=== PATIENT | female | born 1985 | race Two or more races ===

== ENCOUNTER 2021-07-19 11:41 | Emergency (ER) | payer SELFPAY ==
[~2021-07-19] VITALS: Ht 147.3 cm; Wt 59.0 kg
== END 2021-07-19 15:23 | disposition home or self-care (01) ==
LOC: ER1 11:41
DX: U07.1 COVID-19 (principal); Z23 Encounter for immunization; Z91.040 Latex allergy status
CPT/HCPCS: 99283; M0243